=== PATIENT | female | born 1995 ===

== ENCOUNTER 2020-10-14 06:39 | Inpatient (IN) ==
[2020-10-14] MEDS ORDERED: MEPERIDINE 50 MG/1 ML VIAL IV PRN (08:00)
[2020-10-14] MEDS ORDERED: BUTORPHANOL 2 MG/ML VIAL IV PRN (08:00)
[2020-10-14] MEDS ORDERED: OXYTOCIN/LR 20 UNIT/1,000 ML BAG IV SCH (08:00)
[2020-10-14] MEDS ORDERED: LACTATED RINGERS 1,000 ML IV SCH (08:00)
[2020-10-14] MEDS ORDERED: ONDANSETRON 4 MG/2 ML VIAL IV PRN (08:00)
[2020-10-14 08:28] LABS: Basophils % 0.2 % (0.0-0.8); Eosinophils # 0.1 10*3/uL (0.0-0.87); Eosinophils % 0.6 % (0.00-10.9); Hematocrit 36.5 VOL% (35.7-47.0); Hemoglobin 11.3 GM/DL (12.0-16.0); Immature Granulocytes % 1.3 %; Immature Granulocytes Absolute 0.11 #; Lymphocytes # 1.5 10*3/uL (1.4-4.0); Lymphocytes % 17.1 % (21.3-54.2); Mean Corpuscular Volume 80.4 FL (87-102); Mean Platelet Volume 9.4 FL (9.6-12.0); Monocytes % 5.5 % (1.7-12.7); Neutrophils % 75.3 % (38.7-73.9); Platelet Count 229 T/CUMM (130-400); Red Blood Count 4.54 MC/CUMM (3.8-5.5); Red Cell Distribution Width 16.6 % (9.3-17.3); White Blood Count 8.5 T/CUMM (4-12)
[2020-10-14 08:47] LABS: Alanine Aminotransferase 19 U/L (13-56); Albumin 2.4 G/DL (3.4-5.0); Alkaline Phosphatase 200 U/L (45-117); Aspartate Amino Transferase 16 U/L (0-37); Bilirubin,Total < 0.39 MG/DL (0.2-1.0); Blood Urea Nitrogen 7 MG/DL (7-18); Carbon Dioxide 24 MMOL/L (21-32); Estimated Glom Filtration Rate 179 ML/MIN; Glucose 126 MG/DL (74-106); Osmolality,Calculated 276.5 MOS/KG (273-304); Potassium 3.9 MMOL/L (3.5-5.1); Sodium 139 MMOL/L (136-145); Total Protein 6.5 G/DL (6.4-8.2); Uric Acid 4.2 MG/DL (2.6-6.0)
[2020-10-14] MEDS ORDERED: LACTATED RINGERS 1,000 ML IV ONE (09:57)
[2020-10-14] MEDS ORDERED: FAMOTIDINE 20 MG/2 ML VIAL IV ONE (09:57)
[2020-10-14] MEDS ORDERED: CITRIC ACID/SODIUM CITRATE 30 ML UDCUP PO ONE (09:57)
[2020-10-14] MEDS ORDERED: hydrOXYzine HCL 25 MG/1 ML VIAL IM PRN (12:13)
[2020-10-14] MEDS ORDERED: ePHEDrine 50 MG/ML VIAL IV PRN (12:13)
[2020-10-14] MEDS ORDERED: ONDANSETRON 4 MG/2 ML VIAL IV ONE (12:13)
[2020-10-14] MEDS ORDERED: PROMETHAZINE 25 MG/1 ML VIAL IM ONE (12:13)
[2020-10-14] MEDS ORDERED: NALOXONE 0.4 MG/ML VIAL IV PRN (12:13)
[2020-10-14] MEDS ORDERED: diphenhydrAMINE 50 MG/1 ML VIAL IV PRN ×2 (12:13)
[2020-10-14] MEDS ORDERED: fentaNYL 2 MCG/ROPIV 0.2% EPID 100 ML EPIDURAL SCH (12:30)
[2020-10-14 16:15] LABS: Bilirubin,Urine Negative (Negative); Blood, Urine Negative (Negative); Glucose,Urine (UA) Negative (Negative); Ketones,Urine Negative (Negative); Mucus,Urine Occasional /LPF (Occasional); Nitrite,Urine Negative (Negative); Protein,Urine Negative; RBC,Urine <1 /HPF (0-4); Squamous Epithelial Cell,Urine Occasional /HPF (0-10); Urine Appearance CLEAR (Clear); Urine Color Yellow (Yellow); Urine Specific Gravity 1.011 (1.001-1.035); Urine Urobilinogen < 2.0 EU/DL (0.2-1.0)
[2020-10-14] MEDS ORDERED: METHYLERGONOVINE 0.2 MG/1 ML AMP ONE (16:53)
[2020-10-14] MEDS ORDERED: TRANEXAMIC ACID 1,000 MG/10 ML VIAL ONE (16:53)
[2020-10-14] MEDS ORDERED: miSOPROStoL 200 MCG TABLET ONE (16:53)
[2020-10-14] MEDS ORDERED: SODIUM CHLORIDE 0.9% 0 ML IV ONE (16:54)
[2020-10-14] MEDS ORDERED: CARBOPROST TROMETHAMINE 250 MCG/ML AMP IM ONE (16:54)
[2020-10-14 17:38] LABS: Cord Arterial Blood HCO3 22.2 MMOL/L
[2020-10-14 17:41] LABS: Cord Venous Blood HCO3 21.9 MMOL/L; Cord Venous Blood PCO2 39.3 MMHG; Cord Venous Blood PO2 38.5 MMHG
[2020-10-14] MEDS ORDERED: OXYTOCIN 10 UNIT/ML VIAL ONE (19:59)
[2020-10-14] MEDS ORDERED: DIPH/TET/ACEL PERT BOOSTER VACCINE 0.5 ML VIAL IM ONE (21:06)
[2020-10-14] MEDS ORDERED: oxyCODONE/ACETAMINOPHEN 5-325 MG TABLET PO PRN ×2 (21:06)
[2020-10-14] MEDS ORDERED: WITCH HAZEL PADS 100/JAR TOP PRN (21:06)
[2020-10-14] MEDS ORDERED: LANOLIN 50% CREAM 0.3 OZ TUBE TOP PRN (21:06)
[2020-10-14] MEDS ORDERED: MEASLES/MUMPS/RUBELLA VACCINE 0.5 ML VIAL SUBCUT ONE (21:06)
[2020-10-14] MEDS ORDERED: BISACODYL 10 MG SUPP RECTAL PRN (21:06)
[2020-10-14] MEDS ORDERED: OXYTOCIN/LR 20 UNIT/1,000 ML BAG IV ONE (21:06)
[2020-10-14] MEDS ORDERED: RHO(D) IMMUNE GLOBULIN 300 MCG SYRINGE IM ONE (21:06)
[2020-10-14] MEDS ORDERED: HYDROCORTISONE 2.5% RECTAL CREAM 30 GM TUBE TOP PRN (21:06)
[2020-10-14] MEDS ORDERED: ACETAMINOPHEN 325 MG TABLET PO PRN (21:06)
[2020-10-14] MEDS ORDERED: BENZOCAINE 20%/MENTHOL 0.5% SPRAY 56 GM CAN TOP PRN (21:06)
[2020-10-15 06:00] LABS: Basophils % 0.3 % (0.0-0.8); Eosinophils # 0.1 10*3/uL (0.0-0.87); Eosinophils % 0.9 % (0.00-10.9); Hematocrit 34.3 VOL% (35.7-47.0); Hemoglobin 11.4 GM/DL (12.0-16.0); Immature Granulocytes % 1.1 %; Immature Granulocytes Absolute 0.12 #; Lymphocytes # 1.9 10*3/uL (1.4-4.0); Lymphocytes % 17.2 % (21.3-54.2); Mean Corpuscular HGB Conc 33.2 GM/DL (32-36); Mean Platelet Volume 9.3 FL (9.6-12.0); Monocytes % 8.6 % (1.7-12.7); Neutrophils % 71.9 % (38.7-73.9); Platelet Count 190 T/CUMM (130-400); Red Cell Distribution Width 16.5 % (9.3-17.3); White Blood Count 10.9 T/CUMM (4-12)
[2020-10-15] MEDS: IBUPROFEN 800 MG TABLET PO PRN ×3 (08:19→22:42)
[2020-10-15] MEDS: DOCUSATE SODIUM 100 MG CAPSULE PO SCH ×2 (08:19→20:14)
[2020-10-16] MEDS: IBUPROFEN 800 MG TABLET PO PRN ×2 (04:19→15:26)
[2020-10-16] MEDS: DOCUSATE SODIUM 100 MG CAPSULE PO SCH (09:04)
[2020-10-16 15:48] VITALS: BP 109/50
== END 2020-10-16 16:40 | disposition home or self-care (01) | DRG 560 ==
LOC: N.LD 06:39 → N.OB 20:45
PROVIDERS: ADMIT Obstetrics & Gynecology; ATTEND Obstetrics & Gynecology